=== PATIENT | male | born 1970 | race Caucasian/White ===

== ENCOUNTER 2023-02-15 18:34 | Emergency (ER) | payer OTHER, SELFPAY ==
[2023-02-15 18:36] VITALS: BP 159/97; PULSE 84; RESP 16; TEMP 36.6; O2SAT 100; BMI 33.6
--- NOTE | 2023-02-15 19:03 | EX.ED.DYSGE1 ---
HPI History of Present Illness Chief Complaint: Flank Pain Informant: patient and spouse/S.O. Narrative Narrative: Patient presents with right flank pain and some hematuria. Patient states that about a week and a half 2 weeks ago he had some hematuria. But he was not having pain at the time. He is no longer having hematuria. But at about 345 today he got onset of significant right flank pain. It radiated toward the right front down low. It started right after he urinated. But he did not see blood. No clots. He has not had fevers or chills. When this was going on he could not get comfortable and he did get nauseated but did not actually vomit. He does not have a history of kidney stones but his mother has. He is on lisinopril and a statin. PFSH PFSH Home Medications ondansetron 4 mg disintegrating tablet 4 mg PO Q8H PRN PRN Nausea #10 tabs 02/15/23 [Rx Last Taken Unknown] oxycodone-acetaminophen 5 mg-325 mg tablet 1 tab PO Q6H PRN PRN Pain 3 days #12 TABLETS 02/15/23 [Rx Last Taken Unknown] tamsulosin 0.4 mg capsule (Flomax) 0.4 mg PO DAILY #7 caps 02/15/23 [Rx Last Taken Unknown] Allergy/AdvReac Type Severity Reaction Status Date / Time No Known Allergies Allergy Verified 02/15/23 19:20 Social History Smoking Status: Never smoker ROS ROS ED ROS Narrative A complete review of systems was performed and is negative except as documented in the history of present illness. Some specific details below. Constitutional: No recent fevers or chills. EYE: No visual complaints or pain. ENT: No difficulty swallowing. No swelling. No pain. CV: No chest pain or palpitations. Respiratory: No dyspnea. No hemoptysis. No difficulty taking breaths. GI: Please see history of present illness. He has been eating and drinking normally having normal bowel movements. He did get nauseated with the pain but no longer nauseated. : See history of present illness. Musculoskeletal: No recent trauma. No pains other than the right flank pain. But he states it is down to about a 2 out of 10 now and is much better and more tolerable. Skin: No rash. No vesicles. Nondiaphoretic at this time but he was a bit diaphoretic when the pain was at its worst. Neuro: No weakness or numbness. Endocrine: No polyuria or polydipsia. EXAM Physical Exam Narrative Exam Narrative: CONSTITUTIONAL: Patient is nontoxic in appearance. The patient looks comfortable at this time. HEENT: No notable trauma. Mucous membranes moist. EYES: No conjunctival injection. No icterus. CARDIOVASCULAR: Regular rate. Regular rhythm. No notable murmur. No JVD. RESPIRATORY: No respiratory distress. Breathing is unlabored. No wheezes. No rhonchi. No rales. No pain with a deep breath. GASTROINTESTINAL: Not distended. Bowel sounds are normal. No tenderness. No guarding. No rebound. No palpable mass. No bruit. Overall abdomen is quite benign. GENITOURINARY: No tenderness over the bladder. Minimal right CVA tenderness. Urine is on the counter looks clear. No sign of blood. did have a picture of when he had hematuria couple weeks ago and it was slightly pink. MUSCULOSKELETAL: Atraumatic. No peripheral edema. No cord. No tenderness along the deep venous system. No asymmetry. NEUROLOGICAL: Patient is alert and appropriate. No focal deficit noted. SKIN: No noted rashes/vesicles. No diaphoresis at this time. PSYCHIATRIC: Patient is calm. Mood is appropriate. Const Vital Signs: 02/15/23 18:36 02/15/23 18:52 Temperature 97.8 F Temperature Source Temporal Pulse Rate 84 Respiratory Rate 16 Respiratory Pattern Normal Blood Pressure 159/97 H Blood Pressure Mean 117 Pulse Ox 100 Oxygen Delivery Method Room Air MDM MDM MDM Narrative Medical decision making narrative: Patient CBC shows no acute abnormalities. Patient's electrolytes does show elevated creatinine at 1.9. I do not have an old to compare to though. I do not know if this is due to his kidney stone or may have been that for a while. Minimal elevation of glucose. We talked about this and this will need to be watched and recheck. He is also encouraged to maintain hydration. He was also given a liter of fluid here to maintain hydration. Urine shows no significant indication of infection. My independent her potation of his CT shows a smaller stone at the right UVJ with some hydro-. This is consistent with a final reading. I explained that statistically his stone should pass. If it is not passing it over the next week that he may need stenting lithotripsy laser treatment or other intervention. He also needs to follow-up and have the kidney function rechecked. We will give him number of urologist but he can also follow-up with his primary physician. We discussed reasons to return. Lab Data Attestation: I reviewed the patient's lab results. Labs: Laboratory Results - last 24 hr 02/15/23 02/15/23 17:15 19:20 WBC 10.6 RBC 4.77 Hgb 14.5 Hct 42.4 MCV 88.9 MCH 30.4 MCHC 34.2 RDW Std Deviation 42.2 RDW Coeff of [place] 12.9 Plt Count 247 MPV 10.7 Immature Gran % (Auto) 0.300 Neut % (Auto) 83.7 H Lymph % (Auto) 10.0 L [place] % (Auto) 5.6 Eos % (Auto) 0.2 Baso % (Auto) 0.2 Absolute Neuts (auto) 8.9 H Absolute Lymphs (auto) 1.06 Nucleated RBC % 0 Sodium 140 Potassium 4.0 Chloride 109 H Carbon Dioxide 23.0 Anion Gap 8 BUN 14 Creatinine 1.90 H Estim Creat Clear Calc 51.98 Est GFR (MDRD) Af Amer 48 L Est GFR (MDRD) Non-Af 40 L BUN/Creatinine Ratio 7.4 L Glucose 133 H Calcium 9.6 Urine Color Yellow Urine Clarity Clear Urine pH 6.0 Ur Specific [place] 1.020 Urine Protein 30 H Urine Glucose (UA) Normal Urine Ketones 5 H Urine Occult Blood 25 H Urine Nitrite Negative Urine Bilirubin Negative Urine Urobilinogen Normal Ur Leukocyte Esterase 25 H Urine RBC 0-5 SEEN Urine WBC 0 SEEN Ur Squamous Epith Cells 0 SEEN Urine Bacteria 0 SEEN Urine Mucus 0 SEEN Radiography Diagnostic Testing: Clinical Impression(s) from Imaging Studies Abdomen/Pelvis CT 02/15/23 20:26 IMPRESSION: Obstruction of the right kidney and collecting system from a 3 mm right UVJ stone. Electronically Signed: Gerardo Leonard MD at 20:49 EDT , Discharge Plan Triage Chief Complaint: Flank Pain ED Provider: Adrien Bejarano Dx/Rx/DC Orders Clinical Impression: Creatinine elevation, Kidney stone on right side Instructions: ED Kidney Stone w/ Colic Prescriptions: New oxycodone-acetaminophen [oxycodone-acetaminophen] 5-325 mg tablet 1 tab PO Q6H PRN PRN (Reason: Pain) 3 Days Qty: 12 0RF ondansetron [ondansetron] 4 mg tablet,disintegrating 4 mg PO Q8H PRN PRN (Reason: Nausea) Qty: 10 0RF tamsulosin [Flomax] 0.4 mg capsule 0.4 mg PO DAILY Qty: 7 0RF Primary Care Provider: Reymundo Saldivar Referrals: Sb Pedraza MD [Med Staff - Active Staff] - 3-5 Days Reymundo Saldivar MD [Primary Care Provider] - 3-5 Days if not improving Disposition Disposition: Home, Self Care
[2023-02-15] MEDS: 0.9% Normal Saline 1,000 ML 1000 ML IV (19:20)
[2023-02-15 19:23] LABS: Absolute Lymphocyte Count 1.06 X10^3/uL (0.83-4.51); Absolute Neutrophil Count 8.9 X10^3/uL (2.0-7.7); Basophil# 0.02 X10^3/uL; Basophil% 0.2 % (0-1); Eosinophil# 0.02 X10^3/uL; Eosinophils% 0.2 % (0-5); Hematocrit 42.4 % (40-54); Hemoglobin 14.5 g/dL (13.0-16.5); Lymphocyte # 1.06 X10^3/ul (0.83-4.51); Mean Corp Hgb Conc 34.2 g/dL (32-36); Mean Corpuscular Hgb 30.4 pg (27.0-32.0); Mean Corpuscular Volume 88.9 fL (80-94); Mean Platelet Vol. 10.7 fl (6.2-12.0); Monocyte# 0.59 X10^3/uL; Monocyte% 5.6 % (0-10); NRBC Flagged by Analyzer 0 % (0-5); Neutrophil # 8.86 X10^3/uL (2.7-7.7); Neutrophil % 83.7 % (47-70); Platelet Count 247 K/mm3 (150-450); RBC Distribution Width CV 12.9 % (11.6-14.6); RBC Distribution Width SD 42.2 fl (35.1-43.9); Red Blood Count 4.77 M/mm3 (4.6-6.2); White Blood Count 10.6 K/mm3 (4.4-11.0)
[2023-02-15 19:29] LABS: Bacteria 0 SEEN /hpf (None Seen); Mucous, Urine 0 SEEN /hpf (<or=2+); Squamous Epithelial Cells - UA 0 SEEN /hpf (0-5); White Blood Cells 0 SEEN /hpf (0-5)
[2023-02-15 19:31] LABS: Color, Urine Yellow (Yellow); Glucose, Dipstick Normal (Normal); Ketone-Dipstick 5 mg/dl (Negative); Leukocyte Esterase-Dipstick 25 /ul (Negative); Nitrite-Dipstick Negative (Negative); Occult Blood-Urine 25 /ul (Negative); Protein-Dipstick 30 mg/dl (Negative); Urine Bilirubin Dipstick Negative (Negative); Urine Clarity Clear (Clear); Urine Urobilinogen Normal (Normal)
[2023-02-15 19:38] LABS: Anion Gap 8 (5-15); BUN 14 mg/dL (7-18); BUN/Creat Ratio 7.4 RATIO (10-20); Calcium,Total 9.6 mg/dL (8.5-10.1); Chloride 109 mmol/L (98-107); EST Glomerular Filtration Rate 40 mL/min (>60); Est Glom Filt Rate - Afr Amer 48 mL/min (>60); Estimated Creatinine Clearance 51.98 ml/min; Glucose 133 mg/dL (74-106); Sodium Level 140 mmol/L (136-145)
[2023-02-15 19:44] LABS: Red Blood Cells-Urine 0-5 SEEN /hpf (0-5)
--- NOTE | 2023-02-15 20:26 | CT_ITS ---
STUDY: CT ABDOMEN AND PELVIS WITHOUT CONTRAST REASON FOR EXAM: Male, 52 years old. Pain RADIATION DOSAGE (If Supplied By Facility): CTDIvol = ( 16.80 ) mGy, DLP = ( 914.79 ) mGycm TECHNIQUE: Transaxial images were obtained from the dome of the diaphragm to the symphysis pubis without oral contrast, and without intravenous contrast. Sagittal and coronal images were reconstructed. Individualized dose optimization techniques were used for this CT. COMPARISON: None. FINDINGS: The visualized lung bases are unremarkable. The visualized portions of the heart are within normal limits. There is decreased attenuation of the liver consistent with steatosis. The gallbladder is contracted. Normal spleen. Normal pancreas. Normal bilateral adrenal glands. Right kidney has mild perinephric stranding, and mild hydronephrosis. Linings are related to a 3 mm right UVJ stone seen on axial image 159 and coronal image 89, otherwise negative Right kidney. Normal left kidney. Normal visualized stomach. Normal small intestine. Normal colon. The appendix is visualized and appears normal. Normal abdominal aorta. Normal inferior vena cava. Normal retroperitoneum. Normal urinary bladder. Bilateral small fat-containing inguinal hernias are seen worse on the left. Normal osseous structures. CT/Abdomen/Pelvis without Cont IMPRESSION: Obstruction of the right kidney and collecting system from a 3 mm right UVJ stone. Electronically Signed: Gerardo Leonard MD at 20:49 EDT ,
[2023-02-15 22:34] VITALS: RESP 18
== END 2023-02-15 22:35 | disposition home or self-care (01) ==
PROVIDERS: Emergency Provider Emergency Medicine; PCP Internal Medicine; Visit Provider Emergency Medicine
DX: N13.2 Hydronephrosis with renal and ureteral calculous obstruction (principal); R79.89 Other specified abnormal findings of blood chemistry; R31.9 Hematuria, unspecified; Z79.899 Other long term (current) drug therapy
CPT/HCPCS: 74176; 80048; 81001; 85025; 99283